=== PATIENT | female | born 2000 | race Caucasian/White ===

== ENCOUNTER → 2020-01-04 | Outpatient (CLI) | payer SELFPAY ==
--- NOTE | 2020-01-04 17:09 | RADIOLOGY REPORT (SQ) ---
EXAM DESCRIPTION: U/S OB 14+ TRNABD 1GES W/O DOP IMAGES COMPLETED DATE/TIME: 01/04/2020 3:58 pm REASON FOR STUDY: Z34.82 ENCOUNTER FOR SUPRVSN OF NORMAL , SECOND TRIMESTER Z34.82 ENCOUNT ER FOR SUPRVSN OF NORMAL , SECOND TRI COMPARISON: None. TECHNIQUE: Static and Dynamic grayscale imaging performed of gravid uterus using transabdominal appr oach. Additional selected color Doppler and spectral images recorded. All stored on PACS. LIMITATIONS: None. FINDINGS: FETUSES SEEN:1 EGA: 23 weeks 6 days Calculated using BPD,FL,HC,AC documented on images. No discrepancy with clinica l dates. SARAH: 04/26/2020 EFW: 569 grams PERCENTILE: 29th percentile RAPHAEL: Largest volume pocket 3.8 x 12 cm PLACENTA: Anterior grade 1 PRESENTATION: Cephalic. ANATOMY: HEART RATE: 141 beats per minute. FOUR CHAMBER HEART: Visualized. THREE VESSEL CORD: Yes. CORD INSERTION: Visualized. KIDNEYS AND BLADDER: Visualized. Appear normal. STOMACH: Visualized. Appears normal. SPINE: Normal as visualized. BRAIN AND LATERAL VENTRICLES: Visualized. Appear normal. OTHER: No other significant finding. MATERNAL ADNEXA: Maternal ovaries not visualized. CERVICAL LENGTH: 5 cm, Closed. OTHER: No other significant finding. IMPRESSION: LIVING INTRAUTERINE . ESTIMATED GESTATIONAL AGE 23 weeks 6 day NO VISUALIZED ANOMALIES. Trimester of : Second trimester - 13 weeks 1 day to 27 weeks 6 days. TECHNICAL DOCUMENTATION: JOB ID: [id number] 2010 [place]- All Rights Reserved Reading location - IP/workstation name: [id number]
== END ==
LOC: RAD 14:49
PROVIDERS: ATTEND Midwife
DX: Z34.82 Encounter for supervision of other normal pregnancy, second trimester (principal)
CPT/HCPCS: 76805

== ENCOUNTER 2020-01-10 05:08 | Inpatient (IN) | payer MEDICAID ==
--- NOTE | 2020-01-10 05:39 | ER Document Report ---
ED General - General Chief Complaint: Shortness Of Breath Stated Complaint: SHORTNESS OF BREATH Time Seen by Provider: 01/10/20 05:25 Primary Care Provider: HUMBERTO SARAH CNM [Primary Care Provider] - Follow up as needed Notes: Patient is a 20-year-old female, G3, P1 at 25 weeks gestation by first trimester ultrasound, that comes emergency department for chief complaint of shortness of breath, lightheadedness, and not feeling the baby moving. She states that she actually frequently feels short of breath especially in her later trimesters during , however she also felt somewhat lightheaded earlier. She states that she woke up operations liaison and she has not felt baby move for couple of hours and she became concerned. She states that after he became concerned she felt more short of breath. She denies chest pain, dizziness, cough, fever, congestion, sore throat, nausea or vomiting, abdominal pain, vaginal bleeding or discharge. The miscarriage she had previously was in first trimester. She take s Unisom for nausea, vitamins, no other medications or medical history reported. She denies personal or family history of blood clot, she does not smoke, she denies lower extremity swelling or recent travel. Past Medical History - General Information source: Patient - Social History Smoking Status: Never Smoker Frequency of alcohol use: None Drug Abuse: None Lives with: Family Family History: Reviewed & Not Pertinent - Immunizations Immunizations up to date: Yes Hx Diphtheria, Pertussis, Tetanus Vaccination: Yes Review of Systems - Review of Systems Constitutional: No symptoms reported EENT: No symptoms reported Cardiovascular: See HPI Respiratory: See HPI Gastrointestinal: No symptoms reported Genitourinary: No symptoms reported Female Genitourinary: See HPI Musculoskeletal: No symptoms reported Skin: No symptoms reported Hematologic/Lymphatic: No symptoms reported Neurological/Psychological: No symptoms reported Physical Exam - Vital signs Vitals: Temp 97.8 F 01/10/20 05:08 - Notes Notes: GENERAL: Alert, interacts well. No acute distress. HEAD: Normocephalic, atraumatic. EYES: Pupils equal, round, and reactive to light. Extraocular movements intact. ENT: Oral mucosa moist, tongue midline. Oropharynx unremarkable. Airway patent. NECK: Full range of motion. Supple. Trachea midline. No lymphadenopathy. LUNGS: Clear to auscultation bilaterally, no wheezes, rales, or rhonchi. No respiratory distress. Non-tender chest wall. HEART: Regular rate and rhythm. No murmur ABDOMEN: Gravid abdomen, nontender. GENITOURINARY: Deferred EXTREMITIES: Moves all 4 extremities spontaneously. No edema, normal radial and dorsalis pedis pulses bilaterally. No cyanosis. BACK: no cervical, thoracic, lumbar midline tenderness. No saddle anesthesia, normal distal neurovascular exam. Moves all extremities in full range of motion. NEUROLOGICAL: Alert and oriented x3. Normal speech. Cranial nerves II through XII grossly intact. Strength 5/5 in all extremities. PSYCH: Slightly anxious SKIN: Warm, dry, normal turgor. No rashes or lesions noted. Course - Re-evaluation Re-evalutation: EKG and chest x-ray unremarkable. Remaining work-up still pending. Vital signs unremarkable. Patient with clear lungs on auscultation, no signs of respiratory distress. No lower extremity swelling or concerning risk factors outside of for pulmonary embolism, no tachycardia or hypoxia, low suspicion of PE. She has no abdominal pain. Unfortunately patient also is not feeling any movement. We attempted Doppler heart tones but we were unable to obtain these. Patient was sent for formal ultrasound as a result. Ultrasound showing intrauterine at 24 weeks and 2 days which is less than expected, no heartbeat noted. I called and spoke with Dr. Khan, she recommends that I discussed with the patient and give her options including admission for induction, timed processes at home with returning later, or going to the office for a repeat ultrasound today. I discussed this at length with patient. Patient displayed grief but also was not surprised, she states this was what she expected. Patient was given time, afterwards she called me back to the room, states she spoke to her fianc and they both decided that they would proceed with going to labor and delivery for induction. I called Dr. Khan back, she accepts the patient. Informed nursing staff for coordination of this. - Vital Signs Vital signs: Temp Pulse Resp BP Pulse Ox 97.8 F 60 18 101/39 L 100 01/10/20 05:10 01/10/20 05:10 01/10/20 05:10 01/10/20 05:10 01/10/20 05:10 - Laboratory Result Diagrams: 01/10/20 06:34 01/10/20 06:34 Laboratory results interpreted by me: 01/10/20 06:22 Ur Leukocyte Esterase TRACE H Discharge - Discharge Clinical Impression: demise, Shortness of breath Condition: Stable Disposition: ADMITTED INPATIENT Admitting Provider: [facility] Unit Admitted: Labor and Delivery Additional Instructions: Please proceed to labor and delivery immediately. Referrals: HUMBERTO SARAH CNM [Primary Care Provider] - Follow up as needed
--- NOTE | 2020-01-10 06:36 | RADIOLOGY REPORT (SQ) ---
Obstetric ultrasound: 01/10/2020 5:33 AM CDT HISTORY: 20-year-old female with decreased her lack of motion. TECHNIQUE: Multiple grayscale and color Doppler images of the pelvis were obtained transabdominally. COMPARISON: None available for this . FINDINGS: A single intrauterine gestation is seen, which is cephalic in position. The placenta is anterior and fundal in location, and free of internal os of the cervix. No heart rate was found. The cervix measures at least 3.8 cm in length. The estimated weight is approximately 629 g +/- 15%. The fetus overall measures at the 29%. The RAPHAEL measures 7.6 cm, with the deepest vertical pocket of approximately 18.1 cm. The fetus measures at 24 weeks and 2 day(s) by AUA, consistent with an estimated due date of 04/29/2020. This is different than the prior estimated due date of 04/24/2020. No motion was detected by the entertainment centre manager. The following measurements were obtained: BPD: 6.3 cm, consistent with 25 weeks and 4 day(s). HC: 22.4 cm, consistent with 24 weeks and 3 day(s). AC: 19.3 cm, consistent with 24 weeks and 0 day(s). FL: 4.1 cm, consistent with 23 weeks and 1 day(s). IMPRESSION: There is a single intrauterine gestation currently cephalic in position with no heart rate down. This is concerning for a failed intrauterine . Interval follow-up with an obstetric care provider is recommended.
--- NOTE | 2020-01-10 06:42 | RADIOLOGY REPORT (SQ) ---
EXAM DESCRIPTION: X-ray single view chest. CLINICAL HISTORY: 20 years Female, short of breath; shield for COMPARISON: None. TECHNIQUE: Single portable x-ray view of the chest performed on 01/10/2020 at 5:58 AM FINDINGS: The lungs are well expanded and are clear. There is no evidence of a pneumothorax. The cardiac silhouette is normal in size and configuration. The mediastinal contours are normal. No acute osseous abnormality is identified. No focal soft tissue abnormalities are seen. Lines and tubes: None. IMPRESSION: No evidence of acute intrathoracic disease.
[2020-01-10 06:57] LABS: APPEARANCE,URINE CLEAR; BILIRUBIN,URINE NEGATIVE (NEGATIVE); COLOR,URINE STRAW; GLUCOSE, URINE NEGATIVE (NEGATIVE); KETONES,URINE NEGATIVE (NEGATIVE); LEUKOCYTE ESTERASE,URINE TRACE (NEGATIVE); NITRITE,URINE NEGATIVE (NEGATIVE); PROTEIN,URINE NEGATIVE (NEGATIVE); URINE SPECIFIC GRAVITY 1.004; UROBILINOGEN,URINE NEGATIVE mg/dL (<2.0)
[2020-01-10 07:16] LABS: ABSOLUTE EOSINOPHILS # (AUTO) 0.1 10^3/uL (0.0-0.6); ABSOLUTE LYMPHOCYTES (AUTO) 2.4 10^3/uL (0.5-4.7); ABSOLUTE MONOCYTES (AUTO) 0.6 10^3/uL (0.1-1.4); ABSOLUTE NEUT (AUTO) 5.3 10^3/uL (1.7-8.2); BASOPHILS % (AUTO) 0.2 % (0-2); EOSINOPHILS % (AUTO) 0.9 % (0-6); HEMATOCRIT 36.8 % (36.0-47.0); HEMOGLOBIN 13.4 g/dL (12.0-15.5); LYMPHOCYTES % (AUTO) 28.6 % (13-45); MEAN CORPUSCULAR HEMOGLOBIN 33.1 pg (27.0-33.4); MEAN CORPUSCULAR HGB CONC 36.4 g/dL (32.0-36.0); MEAN CORPUSCULAR VOLUME 91 fl (80-97); PLATELET COUNT 289 10^3/uL (150-450); RED BLOOD COUNT 4.04 10^6/uL (3.72-5.28); RED CELL DISTRIBUTION WIDTH 12.4 % (11.5-14.0); SEGMENTED NEUTROPHILS % (AUTO) 63.3 % (42-78); TOTAL CELLS COUNTED % (AUTO) 100 %; WHITE BLOOD COUNT 8.3 10^3/uL (4.0-10.5)
--- NOTE | 2020-01-10 07:21 | EKG REPORT ---
SEVERITY:- BORDERLINE ECG - SINUS RHYTHM BORDERLINE T ABNORMALITIES, DIFFUSE LEADS : Confirmed by: Urban Blum MD 10-Jan-2020 07:20:48
[2020-01-10 07:27] LABS: ANION GAP 5 (5-19); BLOOD UREA NITROGEN 6 mg/dL (7-20); CARBON DIOXIDE 25 mmol/L (22-30); CHLORIDE 103 mmol/L (98-107); GLUCOSE 77 mg/dL (75-110); POTASSIUM 4.2 mmol/L (3.6-5.0)
[2020-01-10] MEDS ORDERED: MISOPROSTOL 0.1 MG TABLET PO SCH (10:15)
[2020-01-10] MEDS ORDERED: MISOPROSTOL 0.2 MG TABLET ONE (11:41)
[2020-01-10 12:21] LABS: URINE AMPHETAMINES SCREEN NEGATIVE; URINE BARBITURATES SCREEN NEGATIVE; URINE BENZODIAZEPINES SCREEN NEGATIVE; URINE COCAINE SCREEN NEGATIVE; URINE MARIJUANA (THC) SCREEN NEGATIVE; URINE METHADONE SCREEN NEGATIVE; URINE PHENCYCLIDINE SCREEN NEGATIVE
[2020-01-10 12:22] LABS: A TYPE INFLUENZA AG NEGATIVE (NEGATIVE); B INFLUENZA AG NEGATIVE (NEGATIVE)
[2020-01-10] MEDS: RINGERS SOLUTION,LACTATED 1,000 ML IV PRN (12:49)
[2020-01-10] MEDS ORDERED: HYDROMORPHONE HCL INJ/PF 2 MG/ML AMPULE IV ONE (12:56)
[2020-01-10] MEDS ORDERED: HYDROMORPHONE HCL INJ/PF 2 MG/ML AMPULE ONE (12:59)
[2020-01-10 13:30] LABS: CHLAM PCR NOT DETECTED (NOT DETECT)
--- NOTE | 2020-01-10 17:01 | Admission Physical ---
Datetime Report Generated by CPN: 01/10/2020 17:01 CURRENT ADMISSION Hx Assessment: Limited Care Chief Complaint: Decreased Movement; Other Chief Complaint Other: pt presented to ER this AM with shortness of breath and decreased movement Indication for Induction: Demise Admit Impression : , Intrauterine ; Demise Admit Plan: Initiate Labor Induction Protocol ALLERGIES Medication Allergies: No Medication Allergies: No Known Allergies (01/10/2020) Latex: No Latex Allergies OBSTETRICAL HISTORY : 3 Term: 1 IAB: 1 Livin Cesareans: 1 Gestational Diabetes: No Rh Sensitization: No Incompetent Cervix: No TOMMY: No Infertility: No ART Treatment: No Uterine Anomaly: No IUGR: No Hx Previous C/S: Yes Macrosomia: No Hx Loss/Stillborn: No PIH: No Hx : No Placenta Previa/Abruption: No Depression/PP Depression: Yes PTL/PROM: No Post Hemorrhage: No Current Procedures: Ultrasound Obstetrical History Comments: 2016, full term male infant; c/s for distress G22017, IAB G3 - current, demise SEE RECORDS Alcohol: No Marijuana : No Cocaine: No Other Illicit Drugs: No Cigarettes: Former Smoker. [id number] MEDICAL HISTORY Diabetes: No Blood Transfusion: No Pulmonary Disease (Asthma, TB): No Breast Disease: No Hypertension: No Bi Data Modeler Surgery: No Heart Disease: No Hosp/Surgery: Yes Autoimmune Disorder: No Anesthetic Complications: No Kidney Disease: Yes Abnormal Pap Smear: Yes Neuro/Epilepsy: No Psychiatric Disorders: No Other Medical Diseases: No Hepatitis/Liver Disease: No Significant Family History: No Varicosities/Phlebitis: No Trauma/Violence : No Thyroid Dysfunction: No Medical History Comments: frequent UTIs since puberty, kidney infection at age 14; hx of depression, not currently on medications; c/s 2016; abnormal pap in June, advised f/u with colposcopy INFECTIOUS HISTORY Gonorrhea: No Genital Herpes: No Chlamydia: No Tuberculosis: No Syphilis: No Hepatitis: No HIV/AIDS Exposure: No Rash or Viral Illness: No HPV: No PHYSICAL EXAM General: Normal Heart: Normal Lungs: Normal Extremities: Normal Pelvic Type: Adequate Vital Signs: Reviewed; Within Normal Limits MEMBRANES Membranes: Intact FETUS A Estimated Weight (gm): 629 Presentation: Vertex Admit Comment: 20yo at 25wga per 6w dating sono on 08/30/19. Pt presented to ER today with shortness of breath and decreased movement. On U/S it was determined that the baby did not have heart tones and pt was given the option of going home and returning to hospital for IOL tomorrow, but patient wanted to stay and start induction of labor today. Pt reports care in [place] and just moved here about a month ago but upon receiving records only initial visit and u/s received as well as note from incision check from last delivery in 2017 (pt with transverse ). No labs collected as well as GBS and GC/Chlam. Covid testing also done and negative secondary to shortness of breath. Pt also reports an anatomy u/s done in our Hospital last week but no records found and after call was placed to [facility] they report patient had nurse visit but was not scheduled for her new OB until next week. Pt is B positive per care in [place] and hx of as stated above and an IAB after . Plan was to start cytotec which patient received an oral dose of 200mcg per Dr. Cook, will continue induction of labor at this time. Labs pending. Dr. Cook in unit and aware of plan INFORMED CONSENT Assignment: Elyse Cook MD Signature: with User ID: Rafael : with User ID: Rafael
[2020-01-10] MEDS ORDERED: ZOLPIDEM TARTRATE 5 MG TABLET PO ONE (19:40)
[2020-01-10] MEDS ORDERED: ACETAMINOPHEN 325 MG TABLET PO ONE (21:45)
[2020-01-10] MEDS ORDERED: ZOLPIDEM TARTRATE 5 MG TABLET ONE (21:47)
[2020-01-10] MEDS ORDERED: ACETAMINOPHEN 325 MG TABLET ONE (21:47)
[2020-01-10] MEDS: MISOPROSTOL 0.2 MG TABLET PO SCH (22:00)
[2020-01-11] MEDS ORDERED: MISOPROSTOL 0.2 MG TABLET ONE ×6 (03:56→21:21)
[2020-01-11 07:08] LABS: HEPATITS B SURFACE ANTIGEN Negative (Negative)
[2020-01-11] MEDS ORDERED: ONDANSETRON HCL INJ/PF 4 MG/2 ML SDV IV ONE (12:05)
[2020-01-11] MEDS ORDERED: ONDANSETRON HCL INJ/PF 4 MG/2 ML SDV ONE (12:08)
[2020-01-11] MEDS ORDERED: PROMETHAZINE HCL INJ 25 MG/1 ML VIAL IV ONE (14:58)
[2020-01-11] MEDS ORDERED: PROMETHAZINE HCL INJ 25 MG/1 ML VIAL ONE (14:59)
[2020-01-11] MEDS ORDERED: MISOPROSTOL 0.2 MG TABLET PV SCH (15:30)
[2020-01-11] MEDS ORDERED: HYDROMORPHONE HCL INJ/PF 2 MG/ML AMPULE IV ONE (19:11)
[2020-01-11] MEDS ORDERED: HYDROMORPHONE HCL INJ/PF 2 MG/ML AMPULE ONE (19:13)
[2020-01-11] MEDS ORDERED: MISOPROSTOL 0.2 MG TABLET PV ONE (21:18)
[2020-01-12] MEDS ORDERED: MISOPROSTOL 0.2 MG TABLET ONE ×2 (01:15→05:27)
[2020-01-12] MEDS ORDERED: MISOPROSTOL 0.2 MG TABLET PV ONE ×2 (01:30→05:25)
[2020-01-12] MEDS ORDERED: HYDROMORPHONE HCL INJ/PF 2 MG/ML AMPULE ONE (01:36)
[2020-01-12] MEDS: RINGERS SOLUTION,LACTATED 1,000 ML IV PRN (01:42)
[2020-01-12] MEDS ORDERED: HYDROMORPHONE HCL INJ/PF 2 MG/ML AMPULE IV ONE (02:00)
[2020-01-12] MEDS ORDERED: EPHEDRINE SULFATE INJ 50 MG/1 ML AMPULE ONE (02:13)
[2020-01-12] MEDS ORDERED: BUPIVACAINE HCL 0.25 % INJ/PF (2.5 MG/1 ML) 30 ML VIAL ONE (02:13)
[2020-01-12] MEDS ORDERED: FENTANYL/BUPIVACAINE/NS/PF 300 MCG/150 ML RTUINJ EPI ONE (02:13)
[2020-01-12] MEDS ORDERED: OXYTOCIN/NORMAL SALINE 20 UNIT/1,000 ML RTUINJ ONE (07:22)
[2020-01-12] MEDS ORDERED: DIPH/PERTUSS(ACELL)/TETANUS VAC/PF 0.5 ML SYR (>=10YO) IM PRN (07:30)
[2020-01-12] MEDS ORDERED: MEASLES,MUMPS&RUBELLA VACC/PF 0.5 ML VIAL SUBCUT PRN (07:30)
[2020-01-12] MEDS ORDERED: BENZOCAINE/MENTHOL AEROSOL SPRAY 56 ML TOP PRN (07:30)
[2020-01-12] MEDS ORDERED: DIBUCAINE 1% OINTMENT 28 GM TP PRN (07:30)
[2020-01-12] MEDS ORDERED: ACETAMINOPHEN WITH CODEINE #3 TABLET PO PRN ×2 (07:30)
--- NOTE | 2020-01-12 07:48 | Warning Signs in Babies ---
VOD Warning Signs Datetime Report Generated by [facility]: 01/12/2020 07:48 VOD#608 -Warning Signs in Babies: Needs to be viewed. (01/10/2020 10:22:Jazmyn Fung RN)
[2020-01-12] MEDS ORDERED: IBUPROFEN 800 MG TABLET ONE ×2 (09:11→15:14)
[2020-01-12] MEDS ORDERED: FERROUS SULFATE 325 MG TABLET PO ONE (09:11)
[2020-01-12] MEDS ORDERED: DOCUSATE SODIUM 100 MG CAPSULE ONE (09:11)
[2020-01-12] MEDS ORDERED: PRENATAL VITAMIN W DHA CAPSULE PO ONE (09:11)
[2020-01-12] MEDS ORDERED: SENNOSIDES/DOCUSATE 8.6-50 MG 1 EACH TABLET ONE (09:11)
[2020-01-12] MEDS ORDERED: PRENATAL VITAMIN W DHA CAPSULE PO SCH (10:00)
[2020-01-12] MEDS ORDERED: FERROUS SULFATE 325 MG TABLET PO SCH (10:00)
[2020-01-12] MEDS ORDERED: SENNOSIDES/DOCUSATE 8.6-50 MG 1 EACH TABLET PO SCH (10:00)
[2020-01-12] MEDS ORDERED: DOCUSATE SODIUM 100 MG CAPSULE PO SCH (10:00)
--- NOTE | 2020-01-12 10:33 | Delivery Summary ---
Del Sum A-C Datetime Report Generated by CPN: 01/12/2020 10:33 DELIVERY PERSONNEL DELIVERY PERSONNEL: [id number] Delivery Doctor:: Jessica Parsons MD Labor and Delivery Nurse:: Alyssa Acosta RN Switchboard Operator/VERIFICATION REP: Thalia Jack, CANAL EQUIPMENT MECHANIC MATERNAL INFORMATION Delivery Anesthesia: Epidural Medications After Delivery: Pitocin Bolus-Please Comment Meds After Delivery Comment: Pitocin 20 units/1000 ml NSS Estimated Blood Loss (ml): 100 Delivery QBL: 100 Maternal Complications: None Provider Comments: Apgars 0/0. placenta delivered immediately after. of note there was no blood present in the umbilical cord which was white and completely exsanguiated. The fetus appears to have a possible syndrome due to the low lying ears and facial edema/thickening of nuchal area. LABOR SUMMARY EDC: 04/24/2020 00:00 No. Babies in Womb: 1 Attempted: Yes Labor Anesthesia: Epidural LABOR INFORMATION Reason for Induction: Demise Cervical Ripening Agents: Cytotec @ Oxytocin: N/A MEMBRANES Membranes Rupture Method: Spontaneous Rupture of Membranes: 01/12/2020 06:44 Length of Rupture (hr): 0.00 Amniotic Fluid Color: Clear Amniotic Fluid Amount: Moderate STAGES OF LABOR Stage 3 hr: 0 Stage 3 min: 1 VAGINAL DELIVERY Episiotomy: None Laceration #1: None Laceration Extension #1: N/A Laceration Repair: Not Applicable CSECTION DELIVERY Primary Indication: N/A Secondary Indication: N/A CSection Incidence: N/A Labor: N/A Elective: N/A CSection Incision: N/A BABY A INFORMATION Delivery Date/Time: 01/12/2020 06:44 Method of Delivery: Vaginal Nurse Controlled Delivery: No Born in Route : No : Successful Forceps: N/A Vacuum Extraction: N/A Shoulder Dystocia : No PRESENTATION/POSITION BABY A Presentation: Cephalic Cephalic Presentation: Vertex Breech Presentation: N/A PLACENTA INFORMATION BABY A Placenta Delivery Time : 01/12/2020 06:45 Placenta Method of Delivery: Spontaneous Placenta Status: Delivered INFANT INFORMATION BABY A Gestational Age at Delivery: 25.2 Gestational Status: - <34 Weeks Infant Outcome : Stillborn Sex: Male WEIGHT/LENGTH BABY A Birthweight (gm): 664 Infant Weight (lb): 1 Infant Weight (oz): 7 Length (in): 12.50 Infant Length (cm): 31.75 CORD INFORMATION BABY A Nuchal Cord : N/A Cord Blood Taken: N/A Suction: None SIGNATURES Signature: with User ID: Andrea
[2020-01-12] MEDS ORDERED: IBUPROFEN 800 MG TABLET PO SCH (14:00)
[2020-01-12 15:07] LABS: HEMATOCRIT 31.1 % (36.0-47.0); HEMOGLOBIN 11.4 g/dL (12.0-15.5); MEAN CORPUSCULAR HEMOGLOBIN 32.9 pg (27.0-33.4); MEAN CORPUSCULAR HGB CONC 36.6 g/dL (32.0-36.0); MEAN CORPUSCULAR VOLUME 90 fl (80-97); PLATELET COUNT 242 10^3/uL (150-450); RED BLOOD COUNT 3.47 10^6/uL (3.72-5.28); RED CELL DISTRIBUTION WIDTH 12.1 % (11.5-14.0); WHITE BLOOD COUNT 15.3 10^3/uL (4.0-10.5)
[2020-01-12 15:56] VITALS: BP 99/54
--- NOTE | 2020-01-12 16:12 | PDOC DISCHARGE SUMMARY ---
Impression - Admit/DC Date/PCP Admission Date/Primary Care Provider: 01/10/20 07:24 HUMBERTO SARAH CNM Discharge Date: 01/12/20 - Assessment Summary: 20yo with IUFD G3 now P2L1 delivered this AM. Desires to be discharged at this time. Denies h/s ideation. Reports pain well controlled with motrin,VSS,no lacerations, understands warning s/s and when and how to seek immediate care. Will f/u at office on Friday/Friday per Dr. Khan. Pt asked questions and verbalized understanding. - Additional Information Resuscitation Status: Full Code - Information given to [facility] for f/u appt Discharge Diet: As Tolerated, Regular Discharge Activity: Activity As Tolerated, Balance Activity w/Rest, No Lifting Over 10 Pounds, Pelvic Rest, No tub bath, Walk Frequently Referrals: HUMBERTO SARAH CNM [Primary Care Provider] - Follow up as needed Prescriptions: Ibuprofen [Motrin 800 mg Tablet] 800 mg PO Q8HP PRN #20 tablet PRN Reason: Abdominal Cramping Home Medications: Doxylamine Succinate [Unisom] 1 tab PO QHS PRN 01/10/20 Vits96/Iron Fum/Folic [ Tablet] 1 tab PO DAILY 01/10/20 Ibuprofen [Motrin 800 mg Tablet] 800 mg PO Q8HP PRN #20 tablet 01/12/20 Results Laboratory Results: WBC 15.3 10^3/uL (4.0-10.5) H 01/12/20 14:54 RBC 3.47 10^6/uL (3.72-5.28) L 01/12/20 14:54 Hgb 11.4 g/dL (12.0-15.5) L 01/12/20 14:54 Hct 31.1 % (36.0-47.0) L 01/12/20 14:54 MCV 90 fl (80-97) 01/12/20 14:54 MCH 32.9 pg (27.0-33.4) 01/12/20 14:54 MCHC 36.6 g/dL (32.0-36.0) H 01/12/20 14:54 RDW 12.1 % (11.5-14.0) 01/12/20 14:54 Plt Count 242 10^3/uL (150-450) 01/12/20 14:54 Lymph % (Auto) 28.6 % (13-45) 01/10/20 06:34 [place] % (Auto) 7.0 % (3-13) 01/10/20 06:34 Eos % (Auto) 0.9 % (0-6) 01/10/20 06:34 Baso % (Auto) 0.2 % (0-2) 01/10/20 06:34 Absolute Neuts (auto) 5.3 10^3/uL (1.7-8.2) 01/10/20 06:34 Absolute Lymphs (auto) 2.4 10^3/uL (0.5-4.7) 01/10/20 06:34 Absolute Monos (auto) 0.6 10^3/uL (0.1-1.4) 01/10/20 06:34 Absolute Eos (auto) 0.1 10^3/uL (0.0-0.6) 01/10/20 06:34 Absolute Basos (auto) 0.0 10^3/uL (0.0-0.2) 01/10/20 06:34 Seg Neutrophils % 63.3 % (42-78) 01/10/20 06:34 Sodium 132.6 mmol/L (137-145) L 01/10/20 06:34 Potassium 4.2 mmol/L (3.6-5.0) 01/10/20 06:34 Chloride 103 mmol/L (98-107) 01/10/20 06:34 Carbon Dioxide 25 mmol/L (22-30) 01/10/20 06:34 Anion Gap 5 (5-19) 01/10/20 06:34 BUN 6 mg/dL (7-20) L 01/10/20 06:34 Creatinine 0.32 mg/dL (0.52-1.25) L 01/10/20 06:34 Est GFR ( Amer) > 60 (>60) 01/10/20 06:34 Est GFR (MDRD) Non-Af > 60 (>60) 01/10/20 06:34 Glucose 77 mg/dL (75-110) 01/10/20 06:34 Calcium 9.0 mg/dL (8.4-10.2) 01/10/20 06:34 TSH 2.80 uIU/mL (0.47-4.68) 01/10/20 06:34 Urine Color STRAW 01/10/20 06:22 Urine Appearance CLEAR 01/10/20 06:22 Urine pH 8.0 (5.0-9.0) 01/10/20 06:22 Ur Specific [place] 1.004 01/10/20 06:22 Urine Protein NEGATIVE mg/dL (NEGATIVE) 01/10/20 06:22 Urine Glucose (UA) NEGATIVE mg/dL (NEGATIVE) 01/10/20 06:22 Urine Ketones NEGATIVE mg/dL (NEGATIVE) 01/10/20 06:22 Urine Blood NEGATIVE (NEGATIVE) 01/10/20 06:22 Urine Nitrite NEGATIVE (NEGATIVE) 01/10/20 06:22 Urine Bilirubin NEGATIVE (NEGATIVE) 01/10/20 06:22 Urine Urobilinogen NEGATIVE mg/dL (<2.0) 01/10/20 06:22 Ur Leukocyte Esterase TRACE (NEGATIVE) H 01/10/20 06:22 Urine WBC (Auto) 0 /HPF 01/10/20 06:22 Urine RBC (Auto) 0 /HPF 01/10/20 06:22 Urine Bacteria (Auto) TRACE /HPF 01/10/20 06:22 Squamous Epi Cells Auto 2 /HPF 01/10/20 06:22 Urine Mucus (Auto) RARE /LPF 01/10/20 06:22 Urine Ascorbic Acid NEGATIVE (NEGATIVE) 01/10/20 06:22 Urine Opiates Screen NEGATIVE 01/10/20 06:22 Urine Methadone Screen NEGATIVE 01/10/20 06:22 Ur Barbiturates Screen NEGATIVE 01/10/20 06:22 Ur Phencyclidine Scrn NEGATIVE 01/10/20 06:22 Ur Amphetamines Screen NEGATIVE 01/10/20 06:22 U Benzodiazepines Scrn NEGATIVE 01/10/20 06:22 Urine Cocaine Screen NEGATIVE 01/10/20 06:22 U Marijuana (THC) Screen NEGATIVE 01/10/20 06:22 RPR NONREACTIVE (NONREACTIVE) 01/10/20 12:55 Chlamydia DNA (PCR) NOT DETECTED (NOT DETECT) 01/10/20 11:15 Hep Bs Antigen Negative (Negative) 01/10/20 12:55 HIV 1&2 Antibody NEGATIVE (NEGATIVE) 01/10/20 12:55 Influenza A (Rapid) NEGATIVE (NEGATIVE) 01/10/20 11:15 Influenza B (Rapid) NEGATIVE (NEGATIVE) 01/10/20 11:15 N.gonorrhoeae DNA (PCR) NOT DETECTED (NOT DETECT) 01/10/20 11:15 Rubella IgG Antibody 25.40 IU/mL 01/10/20 12:55 Rubella IgG Ab Interp POSITIVE 01/10/20 12:55 SARS-CoV-2 (PCR) NEGATIVE (NEGATIVE) 01/10/20 11:15 Group A Strep Rapid NEGATIVE (NEGATIVE) 01/10/20 11:15 Blood Type B POSITIVE 01/10/20 12:55 Antibody Screen NEGATIVE 01/10/20 12:55 Impressions: Obstetrics Ultrasound 01/10/20 05:34 IMPRESSION: There is a single intrauterine gestation currently cephalic in position with no heart rate down. This is concerning for a failed intrauterine . Interval follow-up with an obstetric care provider is recommended. Chest X-Ray 01/10/20 05:36 IMPRESSION: No evidence of acute intrathoracic disease.
[2020-01-12 23:36] LABS: HEPATITIS C QUANTITATION HCV Not Detected IU/mL (.)
== END 2020-01-12 16:24 | disposition home or self-care (01) | DRG 805 ==
LOC: ER 05:08 → EH 07:24 → LR 09:18
PROVIDERS: ADMIT Obstetrics & Gynecology; ATTEND Obstetrics & Gynecology
PROC: 10E0XZZ Delivery of Products of Conception, External Approach (ICD-10-PCS; principal; 2020-01-12)
PROC: 3E0P7VZ Introduction of Hormone into Female Reproductive, Via Natural or Artificial Opening (ICD-10-PCS; 2020-01-12)
DX: O36.4XX0 Maternal care for intrauterine death, not applicable or unspecified (principal); O60.12X0 Preterm labor second trimester with preterm delivery second trimester, not applicable or unspecified; Z37.1 Single stillbirth; O34.211 Maternal care for low transverse scar from previous cesarean delivery; O36.8120 Decreased fetal movements, second trimester, not applicable or unspecified; Z3A.25 25 weeks gestation of pregnancy; Z87.891 Personal history of nicotine dependence
CPT/HCPCS: 1967; 36415; 71045; 76805; 80048; 80307; 81001; 84443; 85025; 85027; 86592; 86701; 86762; 86850; 86900; 86901; 87070; 87340; 87491; 87522; 87591; 87635; 87804; 87880; 93005; 93010; 93976; 94760; 99285; J1170; J2405; J2550; J2590; J3010; J3490

== ENCOUNTER 2020-01-14 09:36 | Emergency (ER) | payer MEDICAID ==
[2020-01-14] MEDS ORDERED: IBUPROFEN 800 MG TABLET PO ONE (09:51)
--- NOTE | 2020-01-14 09:53 | ER Document Report ---
ED Medical Screen (RME) - General Chief Complaint: Breast Problem Stated Complaint: BREAST SWELLING Time Seen by Provider: 01/14/20 09:49 Primary Care Provider: HUMBERTO SARAH CNM [Primary Care Provider] - Follow up as needed Mode of Arrival: Ambulatory Information source: Patient - Related Data Allergies/Adverse Reactions: No Known Allergies Allergy (Unverified 01/10/20 09:23) Past Medical History Past Surgical History: Reports: Hx Section - Immunizations Immunizations up to date: Yes Hx Diphtheria, Pertussis, Tetanus Vaccination: Yes Physical Exam - Vital signs Vitals: Temp Pulse Resp BP Pulse Ox 97.7 F 94 14 117/61 100 01/14/20 09:41 01/14/20 09:41 01/14/20 09:41 01/14/20 09:41 01/14/20 09:41 Course - Vital Signs Vital signs: Temp Pulse Resp BP Pulse Ox 97.7 F 94 14 117/61 100 01/14/20 09:41 01/14/20 09:41 01/14/20 09:41 01/14/20 09:41 01/14/20 09:41 Doctor's Discharge - Discharge Referrals: HUMBERTO SARAH CNM [Primary Care Provider] - Follow up as needed
--- NOTE | 2020-01-14 10:01 | ER Document Report ---
HPI - HPI Patient complains to provider of: breast pain Time Seen by Provider: 01/14/20 09:49 Onset: Other Onset/Duration: Persistent Quality of pain: Achy, Throbbing Pain Level: 3 Context: This 20-year-old female presents 2 days from a stillbirth with a C- section for complaints of breast engorgement. Reports she is tried cabbage leaves showers she is tried expressing her milk without success. Reports her breasts are severely in pain engorged. Denies fever vomiting diarrhea. Has not taken anything for the pain today. Associated Symptoms: None Exacerbated by: Denies Relieved by: Denies Similar symptoms previously: Yes Recently seen / treated by doctor: Yes - REPRODUCTIVE Reproductive: REPORTS: : Past Medical History - General Information source: Patient Last Menstrual Period: post 2 days - Social History Smoking Status: Current Every Day Smoker Cigarette use (# per day): Yes Frequency of alcohol use: None Drug Abuse: None Family History: Reviewed & Not Pertinent Patient has homicidal ideation: No - Medical History Medical History: Negative Past Surgical History: Reports: Hx Section - Immunizations Immunizations up to date: Yes Hx Diphtheria, Pertussis, Tetanus Vaccination: Yes Vertical Provider Document - CONSTITUTIONAL Agree With Documented VS: Yes Exam Limitations: No Limitations General Appearance: WD/WN, No Apparent Distress - HEENT HEENT: Atraumatic, Normocephalic - NECK Neck: Supple - RESPIRATORY Respiratory: No Respiratory Distress, Other - bilateral breast ttp, firm, no erythema - CARDIOVASCULAR Cardiovascular: Regular Rate - MUSCULOSKELETAL/EXTREMETIES Musculoskeletal/Extremeties: MAEW, FROM - NEURO Level of Consciousness: Awake, Alert, Appropriate Motor/Sensory: No Motor Deficit - DERM Integumentary: Warm, Dry Course - Re-evaluation Re-evalutation: 01/14/20 10:49 20-year-old female presents 2 days from a stillbirth delivery with complaints of breast engorgement. Her breasts are firm but not erythemic or warm. I contacted Grace in L&D who contacted the nurse. Patient was given a breast pump and was also given information on ways to decrease engorgement. Patient was instructed on signs and symptoms of infection. Upon discharge Kaylee the nurse appeared. Patient verbalized understanding to all information. - Vital Signs Vital signs: Temp Pulse Resp BP Pulse Ox 97.7 F 94 14 117/61 100 05/08/20 09:49 01/14/20 09:41 01/14/20 09:41 01/14/20 09:41 01/14/20 09:41 Discharge - Discharge Clinical Impression: breast pain, Breast engorgement Condition: Stable Disposition: HOME, SELF-CARE Instructions: Ibuprofen (General) ([facility]) Additional Instructions: *You have been evaluated for breast pain, engorgement *Take your ibuprofen as prescribed *Monitor your breast for signs of infection such as redness or warmth to the breast *use a warm compress, or taking a warm shower to encourage milk let down, apply a cold compress or ice pack to relieve pain and swelling, wear a supportive bra that prevents your breasts from moving significantly *Follow up with your [facility] as scheduled *Return to the emergency department for worsening pain, redness to breast, fever, concerns Referrals: HUMBERTO SARAH CNM [NO LOCAL MD] - Follow up as needed
[2020-01-14 11:04] VITALS: BP 105/51
== END 2020-01-14 11:15 | disposition home or self-care (01) ==
LOC: ER 09:36
DX: O92.79 Other disorders of lactation (principal); O90.9 Complication of the puerperium, unspecified; O99.335 Smoking (tobacco) complicating the puerperium; F17.210 Nicotine dependence, cigarettes, uncomplicated
CPT/HCPCS: 99283; J3490

== ENCOUNTER 2020-04-18 11:41 | Emergency (ER) | payer MEDICAID ==
--- NOTE | 2020-04-18 11:56 | ER Document Report ---
ED Medical Screen (RME) - General Chief Complaint: Abdominal Pain Stated Complaint: ABDOMINAL PAIN Time Seen by Provider: 04/18/20 11:44 - HPI Notes: 04/18/20 11:52 20-year-old female G3, P1 who is is 3 weeks 4 days presents to the emergency room with left lower quadrant abdominal pain that radiates to the left flank. reports pain is worse at night and while eating. Has any vaginal bleeding vaginal pain, does have history of fever and chills. Has not tried any [id number] medications. Denies any chest pain shortness of breath. Reports that she has hyperemesis with her last 2 pregnancies, states she is nauseous today, no vomiting. Denies any fevers or chills. I have greeted and performed a rapid initial assessment of this patient. A comprehensive ED assessment and evaluation of the patient, analysis of test results and completion of the medical decision making process will be conducted by additional ED providers. PHYSICAL EXAMINATION: GENERAL: Well-appearing, well-nourished and in no acute distress. CV: s1, s2 regular LUNGS: No respiratory distress abd: LLQ abd pain, no cva tenderness appreciated bilaterally - Related Data Allergies/Adverse Reactions: No Known Allergies Allergy (Unverified 01/10/20 09:23) Past Medical History - Social History Frequency of alcohol use: None Drug Abuse: None Past Surgical History: Reports: Hx Section - Immunizations Immunizations up to date: Yes Hx Diphtheria, Pertussis, Tetanus Vaccination: Yes Physical Exam - Vital signs Vitals: Temp Pulse Resp BP Pulse Ox 99.3 F 82 16 99/52 L 98 04/18/20 11:45 04/18/20 11:45 04/18/20 11:45 04/18/20 11:45 04/18/20 11:45 Course - Vital Signs Vital signs: Temp Pulse Resp BP Pulse Ox 99.3 F 82 16 99/52 L 98 04/18/20 11:45 04/18/20 11:45 04/18/20 11:45 04/18/20 11:45 04/18/20 11:45
[2020-04-18 12:14] LABS: ABSOLUTE EOSINOPHILS # (AUTO) 0.1 10^3/uL (0.0-0.6); ABSOLUTE MONOCYTES (AUTO) 0.6 10^3/uL (0.1-1.4); ABSOLUTE NEUT (AUTO) 8.3 10^3/uL (1.7-8.2); BASOPHILS % (AUTO) 0.2 % (0-2); EOSINOPHILS % (AUTO) 0.8 % (0-6); HEMATOCRIT 38.3 % (36.0-47.0); HEMOGLOBIN 13.2 g/dL (12.0-15.5); LYMPHOCYTES % (AUTO) 17.9 % (13-45); MEAN CORPUSCULAR HEMOGLOBIN 31.2 pg (27.0-33.4); MEAN CORPUSCULAR HGB CONC 34.6 g/dL (32.0-36.0); MEAN CORPUSCULAR VOLUME 90 fl (80-97); MONOCYTES % (AUTO) 5.3 % (3-13); PLATELET COUNT 307 10^3/uL (150-450); RED BLOOD COUNT 4.25 10^6/uL (3.72-5.28); RED CELL DISTRIBUTION WIDTH 12.9 % (11.5-14.0); SEGMENTED NEUTROPHILS % (AUTO) 75.8 % (42-78); TOTAL CELLS COUNTED % (AUTO) 100 %
[2020-04-18 12:17] LABS: APPEARANCE,URINE SLIGHTLY-CLOUDY; BILIRUBIN,URINE NEGATIVE (NEGATIVE); COLOR,URINE YELLOW; GLUCOSE, URINE NEGATIVE (NEGATIVE); KETONES,URINE NEGATIVE (NEGATIVE); LEUKOCYTE ESTERASE,URINE NEGATIVE (NEGATIVE); NITRITE,URINE NEGATIVE (NEGATIVE); PROTEIN,URINE NEGATIVE (NEGATIVE); URINE SPECIFIC GRAVITY 1.025; UROBILINOGEN,URINE NEGATIVE mg/dL (<2.0)
[2020-04-18 12:33] LABS: ALKALINE PHOSPHATASE 60 U/L (38-126); ANION GAP 6 (5-19); ASPARTATE AMINO TRANSFERASE 17 U/L (14-36); BILIRUBIN,TOTAL 0.2 mg/dL (0.2-1.3); BLOOD UREA NITROGEN 7 mg/dL (7-20); CALCIUM 9.4 mg/dL (8.4-10.2); CARBON DIOXIDE 25 mmol/L (22-30); CHLORIDE 103 mmol/L (98-107); GLUCOSE 128 mg/dL (75-110); POTASSIUM 3.6 mmol/L (3.6-5.0); TOTAL PROTEIN 6.7 g/dL (6.3-8.2)
--- NOTE | 2020-04-18 13:34 | RADIOLOGY REPORT (SQ) ---
EXAM DESCRIPTION: U/S ABDOMEN LIMITED W/O DOP IMAGES COMPLETED DATE/TIME: 04/18/2020 1:21 pm REASON FOR STUDY: LUQ/LLQ abd pain, COMPARISON: None. TECHNIQUE: Dynamic and static grayscale images acquired of the abdomen and recorded on PACS. Lizao jigar selected color Doppler and spectral images recorded. LIMITATIONS: None. FINDINGS: Limited sonographic evaluation the left upper quadrant shows the spleen to be normal and m easured 9.5 cm. The left kidney measures 8.6 cm. No hydronephrosis. No stones. IMPRESSION: Unremarkable left upper quadrant ultrasound. TECHNICAL DOCUMENTATION: JOB ID: [id number] 2010 [employer]- All Rights Reserved Reading location - IP/workstation name: [email or web address]
--- NOTE | 2020-04-18 13:38 | RADIOLOGY REPORT (SQ) ---
EXAM DESCRIPTION: U/S [id number] TRNABD 1GES W/ODOP IMAGES COMPLETED DATE/TIME: 04/18/2020 1:21 pm REASON FOR STUDY: LLQ abd pain COMPARISON: 01/04/2020 TECHNIQUE: Transabdominal static and realtime grayscale images acquired of the pelvis. Additional se lected spectral and color Doppler images recorded. All images stored on PACs. bHCG: Not available. CLINICAL DATES: LMP 03/24/2020 3 weeks 4 days LIMITATIONS: None. FINDINGS: FETUS: Single Living intrauterine . ULTRASOUND EGA: 8 weeks 2 days ULTRASOUND SARAH: 11/26/2020 EFW: Not applicable less than 20 weeks. CRL: 1.8 cm FHR: 158 beats per minute. SURVEY: No visualized anomalies. AMNIOTIC FLUID: Adequate amount. PLACENTA: Not yet developed due to early gestation. SUBCHORIONIC BLEED: Yes SIZE OF BLEED: 11 x 8 x 16 mm UTERUS: No masses. No anomalies. CERVICAL LENGTH: 2.6 cm. Closed. RIGHT ADNEXA: Normal ovary with normal vascular flow. 2.7 x 1.8 x 2 cm. No adnexal free fluid. No adnexal masses. LEFT ADNEXA: Normal ovary with normal vascular flow. 2.2 x 1.7 x 1.3 cm. No adnexal free fluid. No adnexal masses. FREE FLUID: None. OTHER: No other significant finding. IMPRESSION: LIVING INTRAUTERINE . EGA 8 weeks 2 days Trimester of : First trimester - 0 to 13 weeks. TECHNICAL DOCUMENTATION: JOB ID: [id number] 2010 [employer]- All Rights Reserved Reading location - IP/workstation name: [email or web address]
--- NOTE | 2020-04-18 14:43 | ER Document Report ---
ED General - General Chief Complaint: Abdominal Pain Stated Complaint: ABDOMINAL PAIN Time Seen by Provider: 04/18/20 11:44 - HPI Notes: Chief complaint: Left pelvic pain radiating to left flank History of present illness:20-year-old female G3, P1 with 1 previous stillbirth who is at about 4 weeks by dates presenting to the emergency department with left lower quadrant abdominal/pelvic pain radiating to the left flank. She indicates pain is intermittent and is worse at night and while eating. Denies vaginal discharge, vaginal bleeding vaginal pain. No dysuria, fever and chills. Has taken Tylenol and gets intermittent relief of pain. She describes this maximally 3/10 in intensity.. Denies any chest pain shortness of breath. Reports that she has hyperemesis with her last 2 pregnancies, states she is naus eous today, no vomiting. Denies any fevers or chills. - Related Data Allergies/Adverse Reactions: No Known Allergies Allergy (Unverified 01/10/20 09:23) Past Medical History - General Information source: Patient, [facility] Records - Social History Smoking Status: Former Smoker Frequency of alcohol use: None Drug Abuse: None Family History: Reviewed & Not Pertinent Past Surgical History: Reports: Hx Section - Immunizations Immunizations up to date: Yes Hx Diphtheria, Pertussis, Tetanus Vaccination: Yes Review of Systems - Review of Systems Notes: Constitutional: Negative for fever. HENT: Negative for sore throat. Eyes: Negative for visual changes. Cardiovascular: Negative for chest pain. Respiratory: Negative for shortness of breath. Gastrointestinal: As per HPI. Genitourinary: As per HPI. Musculoskeletal: As per HPI. Skin: Negative for rash. Neurological: Negative for headaches, weakness or numbness. 10 point ROS negative except as marked above and in HPI. Physical Exam - Vital signs Vitals: Temp Pulse Resp BP Pulse Ox 99.3 F 82 16 99/52 L 98 04/18/20 11:45 04/18/20 11:45 04/18/20 11:45 04/18/20 11:45 04/18/20 11:45 - General Notes: GENERAL: Well-developed well-nourished female approximately stated age appearing in no acute distress. SKIN: Good turgor no rashes. HEAD: Normocephalic atraumatic. EYES: PERRLA. EOMI. Conjunctivae and sclerae clear. EARS: CANALS AND TMS CLEAR. NOSE: CLEAR. MOUTH: Moist mucosa. Good dentition. No stridor or edema. No drooling. NECK: Supple. No masses or thyromegaly. No adenopathy. Carotids 2+ without bruits. No JVD. BACK: Symmetrical without tenderness. CHEST: Respirations unlabored. Breath sounds clear and symmetrical. HEART: Regular rhythm. No murmur gallop or rub. ABDOMEN: Soft nontender without masses, organomegaly or rebound. Bowel sounds normally active. No bruits. GENITALIA: Deferred. EXTREMITIES: No edema. No calf tenderness. Cap refill less than 1.5 seconds. Dorsalis pedis and posterior tibial pulses 3+ and symmetrical. NEUROLOGICAL: GCS 15. Alert and oriented x3. Normal gait. Fluent speech. Cranial nerves II through XII intact. Sensorimotor and cerebellar normal. Normal tone. PSYCHIATRIC: Appropriate affect. Course - Re-evaluation Re-evalutation: 04/18/20 14:43 CBC and chemistry profile are normal. Urinalysis is unremarkable. 04/18/20 14:43 I have reassured patient that this is probably a ligamentous pain associated with a developing . Suggest continued use of Tylenol. She may use a heating pad. I also suggested topical Lidoderm. Follow-up with [facility] or return here as needed. Findings, clinical impression and plan of treatment have been discussed with patient/family. Understanding of current findings and recommendations has been acknowledged by them and there is agreement regarding disposition and follow-up. - Vital Signs Vital signs: Temp Pulse Resp BP Pulse Ox 99.3 F 82 16 99/52 L 98 04/18/20 11:45 04/18/20 11:45 04/18/20 11:45 04/18/20 11:45 04/18/20 11:45 - Laboratory Result Diagrams: 04/18/20 11:55 04/18/20 11:55 Laboratory results interpreted by me: 04/18/20 04/18/20 04/18/20 11:55 11:55 11:55 WBC 11.0 H Absolute Neuts (auto) 8.3 H Sodium 134.1 L Creatinine 0.46 L Glucose 128 H Beta HCG, Quant 894587.00 H Urine Ascorbic Acid 40 H - Diagnostic Test Radiology reviewed: Reports reviewed - Obstetrical ultrasound per radiologist: Normal IUP about 8 weeks EGA. Left renal ultrasound per radiologist: Normal. Discharge - Discharge Clinical Impression: Pain of round ligament during Condition: Stable Disposition: HOME, SELF-CARE Additional Instructions: Continue Tylenol. Heating pad as needed. Use topical medication provided to you. Follow-up with [facility] clinic. Return here as needed for new or worsening symptoms: Pain that is worsening or unimproved Uncontrolled vomiting High fever or shaking chills Overall worsening Prescriptions: Lidocaine [Lidoderm 5% (700 mg) Transdermal Patch] 1 patch TP DAILY #30 adh..patch
[2020-04-18 14:50] VITALS: BP 108/59
== END 2020-04-18 15:15 | disposition home or self-care (01) ==
LOC: ER 11:41
DX: O26.891 Other specified pregnancy related conditions, first trimester (principal); R10.2 Pelvic and perineal pain; Z3A.01 Less than 8 weeks gestation of pregnancy
CPT/HCPCS: 36415; 76705; 76801; 80053; 81001; 83690; 84702; 85025; 86900; 86901; 99284

== ENCOUNTER 2020-04-27 04:10 | Emergency (ER) | payer MEDICAID ==
[2020-04-27 04:41] VITALS: BP 96/33
[2020-04-27 06:10] LABS: ABSOLUTE BASOPHILS # (AUTO) 0.1 10^3/uL (0.0-0.2); ABSOLUTE EOSINOPHILS # (AUTO) 0.1 10^3/uL (0.0-0.6); ABSOLUTE LYMPHOCYTES (AUTO) 1.9 10^3/uL (0.5-4.7); ABSOLUTE MONOCYTES (AUTO) 0.6 10^3/uL (0.1-1.4); ABSOLUTE NEUT (AUTO) 9.9 10^3/uL (1.7-8.2); BASOPHILS % (AUTO) 0.4 % (0-2); EOSINOPHILS % (AUTO) 0.6 % (0-6); HEMATOCRIT 36.6 % (36.0-47.0); LYMPHOCYTES % (AUTO) 14.9 % (13-45); MEAN CORPUSCULAR HEMOGLOBIN 31.2 pg (27.0-33.4); MEAN CORPUSCULAR HGB CONC 35.5 g/dL (32.0-36.0); MEAN CORPUSCULAR VOLUME 88 fl (80-97); MONOCYTES % (AUTO) 4.7 % (3-13); PLATELET COUNT 307 10^3/uL (150-450); RED BLOOD COUNT 4.17 10^6/uL (3.72-5.28); RED CELL DISTRIBUTION WIDTH 12.7 % (11.5-14.0); SEGMENTED NEUTROPHILS % (AUTO) 79.4 % (42-78); TOTAL CELLS COUNTED % (AUTO) 100 %; WHITE BLOOD COUNT 12.5 10^3/uL (4.0-10.5)
[2020-04-27 06:22] LABS: APPEARANCE,URINE CLEAR; BILIRUBIN,URINE NEGATIVE (NEGATIVE); COLOR,URINE YELLOW; GLUCOSE, URINE NEGATIVE (NEGATIVE); KETONES,URINE 20 mg/dL (NEGATIVE); LEUKOCYTE ESTERASE,URINE TRACE (NEGATIVE); NITRITE,URINE NEGATIVE (NEGATIVE); PROTEIN,URINE NEGATIVE (NEGATIVE); URINE SPECIFIC GRAVITY 1.016; UROBILINOGEN,URINE NEGATIVE mg/dL (<2.0)
[2020-04-27 06:32] LABS: ALBUMIN 3.8 g/dL (3.5-5.0); ALKALINE PHOSPHATASE 73 U/L (38-126); ANION GAP 11 (5-19); ASPARTATE AMINO TRANSFERASE 18 U/L (14-36); BILIRUBIN,TOTAL 0.4 mg/dL (0.2-1.3); BLOOD UREA NITROGEN 6 mg/dL (7-20); CALCIUM 9.5 mg/dL (8.4-10.2); CARBON DIOXIDE 24 mmol/L (22-30); CHLORIDE 101 mmol/L (98-107); GLUCOSE 107 mg/dL (75-110); POTASSIUM 4.2 mmol/L (3.6-5.0); TOTAL PROTEIN 6.5 g/dL (6.3-8.2)
== END 2020-04-27 08:45 | disposition left against medical advice (07) ==
LOC: ER 04:10
DX: Z53.21 Procedure and treatment not carried out due to patient leaving prior to being seen by health care provider (principal)
CPT/HCPCS: 36415; 80053; 81001; 85025

== ENCOUNTER 2020-07-17 00:20 | Emergency (ER) | payer MEDICAID ==
--- NOTE | 2020-07-17 00:53 | ER Document Report ---
ED General Pain - General Chief Complaint: Back Pain Stated Complaint: LOWER BACK PAIN AND PRESSURE,ABDOMINAL PAIN Time Seen by Provider: 07/17/20 00:42 Primary Care Provider: [facility] [Provider Group] - 07/17/20 (call today for close outpatient follow up) - [facility] Notes: 20-year-old female G3, P1, stillborn at 25 weeks to the emergency department with complaints of left lower quadrant abdominal pain that started suddenly tonight. She states it wraps around her back and into her right flank. She denies any vaginal bleeding, urinary symptoms, increasing nausea and vomiting. She states she thinks she is about 18 weeks . She states her due date is November 28. She states that she is concerned about this abdominal pain because she had similar abdominal pain when she had her stillborn in January of this year. She states that this occurred at 25 weeks. She states that she is [facility] She states that she was told that she had partial placental previa for this . She denies any other complaints. - Related Data Allergies/Adverse Reactions: No Known Allergies Allergy (Verified 04/27/20 04:40) Past Medical History - General Information source: Patient - Social History Smoking Status: Never Smoker Frequency of alcohol use: None Drug Abuse: None Family History: Reviewed & Not Pertinent Past Surgical History: Reports: Hx Section - Immunizations Immunizations up to date: Yes Hx Diphtheria, Pertussis, Tetanus Vaccination: Yes Review of Systems - Review of Systems Constitutional: denies: Chills, Fever EENT: No symptoms reported Cardiovascular: denies: Chest pain, Palpitations, Heart racing, Orthopnea, Dyspnea, Syncope, Dizziness, Lightheaded Respiratory: denies: Cough, Short of breath Gastrointestinal: Abdominal pain. denies: Diarrhea, Nausea, Vomiting Genitourinary: denies: Frequency, Flank pain, Hematuria Female Genitourinary: . denies: Vaginal bleeding Musculoskeletal: No symptoms reported Skin: No symptoms reported Hematologic/Lymphatic: No symptoms reported Neurological/Psychological: No symptoms reported -: Yes All other systems reviewed and negative Physical Exam - Vital signs Vitals: Temp Pulse Resp BP Pulse Ox 97.9 F 92 18 119/54 L 96 07/17/20 00:25 07/17/20 00:25 07/17/20 00:25 07/17/20 00:25 07/17/20 00:25 Interpretation: Normal - General General appearance: Appears well, Alert In distress: None - HEENT Head: Normocephalic, Atraumatic Eyes: Normal Pupils: PERRL Neck: Normal, Supple - Respiratory Respiratory status: No respiratory distress Chest status: Nontender Breath sounds: Normal. No: Rales, Rhonchi, Stridor, Wheezing Chest palpation: Normal - Cardiovascular Rhythm: Regular Heart sounds: Normal auscultation Murmur: No Notes: No pedal edema - Abdominal Inspection: Gravid female - Gravid abdomen with fundus at the umbilicus. There is tenderness to palpation to the left lower quadrant. There is no tenderness to palpation to the right lower quadrant. Tenderness: Tender. No: McBurney's point, Castro's sign, Guarding, Rebound Organomegaly: No organomegaly - Back Back: Normal, Nontender. No: CVA tenderness - Neurological Neuro grossly intact: Yes Cognition: Normal Orientation: AAOx4 [place] Coma Scale Eye Opening: Spontaneous José Miguel Coma Scale Verbal: Oriented José Miguel Coma Scale Motor: Obeys Commands José Miguel Coma Scale Total: 15 Speech: Normal Cranial nerves: Normal Cerebellar coordination: Normal Motor strength normal: LUE, RUE, LLE, RLE Additional motor exam normals: Equal wound care center consultant Sensory: Normal - Psychological Associated symptoms: Normal affect, Normal mood - Skin Skin Temperature: Warm Skin Moisture: Dry Skin Color: Normal Course - Re-evaluation Re-evalutation: We will send patient to get a formal ultrasound since she states that she has been told that she has placenta previa. Bedside heart tones are r eassuring in the 160s. It is noted that she does have a urinary tract infection. We will go ahead and give her Rocephin. Noted ultrasound reading with dating that is different than the patient sugg ests. She told ER staff that she is about 18 weeks but she is measuring at 20 weeks. Rechecking her due date would make her technically almost 21 weeks . Did call labor and delivery about sending her up since she had some abdominal pain. I told him about the ultrasound and the urinary tract infection with the Rocephin given to her. Initially they stated that the patient could be set up and they rechecked her. However they called back not much longer and stated that they had talked with Dr. Gay, OB on-call, and he stated the patient did not need to come to labor and delivery. This was relayed to me through the charge nurse Ana in labor and delivery. Patient has not had any bleeding. She will go home on antibiotics. I did discuss this with my ER attending, Dr. Werner and he agrees with the plan. I have encouraged the patient to return at any time should her symptoms worsen. I would also like for her to follow-up with her [facility] today. She agrees with the plan - Vital Signs Vital signs: Temp Pulse Resp BP Pulse Ox 98.2 F 77 18 110/48 L 100 07/17/20 03:36 07/17/20 03:36 07/17/20 03:36 07/17/20 03:36 07/17/20 03:36 - Laboratory Result Diagrams: 07/17/20 00:50 07/17/20 00:50 Laboratory results interpreted by me: 07/17/20 07/17/20 07/17/20 00:50 00:50 00:50 WBC 13.3 H RBC 3.61 L Hgb 11.8 L Hct 33.1 L Absolute Neuts (auto) 9.8 H Sodium 133.7 L BUN 3 L Creatinine 0.28 L Leukocyte Esterase Rfl LARGE H Urine Ascorbic Acid 20 H - Diagnostic Test Radiology reviewed: Image reviewed, Reports reviewed Discharge - Discharge Clinical Impression: Abdominal pain affecting , 20 weeks gestation of UTI (urinary tract infection) Qualifiers: Urinary tract infection type: acute cystitis Hematuria presence: without hematuria Qualified Code(s): N30.00 - Acute cystitis without hematuria Condition: Stable Disposition: LABOR CHECK Instructions: Urinary Tract Infection ([facility]) Additional Instructions: Complete all antibiotics. Follow up with your OBGYN tomorrow. Return if worsening symptoms. Tylenol for pain. Prescriptions: Cephalexin Monohydrate [Keflex 500 mg Capsule] 500 mg PO BID 7 Days #14 capsule Referrals: [facility] [Provider Group] - 07/17/20 (call today for close outpatient follow up)
[2020-07-17] MEDS ORDERED: DIPHENHYDRAMINE HCL 50 MG/ML VIAL IV ONE (01:20)
[2020-07-17] MEDS ORDERED: NORMAL SALINE 1000 ML 1,000 ML IV ONE (01:20)
[2020-07-17] MEDS ORDERED: METOCLOPRAMIDE HCL INJ/PF 10 MG/2 ML SDV IV ONE (01:20)
[2020-07-17 01:28] LABS: ABSOLUTE BASOPHILS # (AUTO) 0.1 10^3/uL (0.0-0.2); ABSOLUTE EOSINOPHILS # (AUTO) 0.1 10^3/uL (0.0-0.6); ABSOLUTE LYMPHOCYTES (AUTO) 2.6 10^3/uL (0.5-4.7); ABSOLUTE MONOCYTES (AUTO) 0.8 10^3/uL (0.1-1.4); ABSOLUTE NEUT (AUTO) 9.8 10^3/uL (1.7-8.2); EOSINOPHILS % (AUTO) 0.5 % (0-6); HEMATOCRIT 33.1 % (36.0-47.0); HEMOGLOBIN 11.8 g/dL (12.0-15.5); LYMPHOCYTES % (AUTO) 19.3 % (13-45); MEAN CORPUSCULAR HEMOGLOBIN 32.6 pg (27.0-33.4); MEAN CORPUSCULAR HGB CONC 35.5 g/dL (32.0-36.0); MEAN CORPUSCULAR VOLUME 92 fl (80-97); MONOCYTES % (AUTO) 5.7 % (3-13); PLATELET COUNT 287 10^3/uL (150-450); RED BLOOD COUNT 3.61 10^6/uL (3.72-5.28); RED CELL DISTRIBUTION WIDTH 13.3 % (11.5-14.0); SEGMENTED NEUTROPHILS % (AUTO) 73.5 % (42-78); TOTAL CELLS COUNTED % (AUTO) 100 %; WHITE BLOOD COUNT 13.3 10^3/uL (4.0-10.5)
[2020-07-17 01:37] LABS: APPEARANCE,URINE SLIGHTLY-CLOUDY; BILIRUBIN,URINE NEGATIVE (NEGATIVE); COLOR,URINE YELLOW; GLUCOSE, URINE NEGATIVE (NEGATIVE); KETONES,URINE NEGATIVE (NEGATIVE); PROTEIN,URINE NEGATIVE (NEGATIVE); URINE SPECIFIC GRAVITY 1.009; UROBILINOGEN,URINE NEGATIVE mg/dL (<2.0)
[2020-07-17 01:54] LABS: ALBUMIN 3.6 g/dL (3.5-5.0); ALKALINE PHOSPHATASE 85 U/L (38-126); ANION GAP 8 (5-19); ASPARTATE AMINO TRANSFERASE 20 U/L (14-36); BILIRUBIN,DIRECT 0.1 mg/dL (0.0-0.4); BILIRUBIN,TOTAL 0.4 mg/dL (0.2-1.3); BLOOD UREA NITROGEN 3 mg/dL (7-20); CALCIUM 9.1 mg/dL (8.4-10.2); CARBON DIOXIDE 23 mmol/L (22-30); CHLORIDE 103 mmol/L (98-107); GLUCOSE 80 mg/dL (75-110); POTASSIUM 4.1 mmol/L (3.6-5.0); TOTAL PROTEIN 6.4 g/dL (6.3-8.2)
[2020-07-17] MEDS ORDERED: CEFTRIAXONE 1 GM/D5W RTU 1 GM/50 ML RTUPB IV ONE (02:02)
--- NOTE | 2020-07-17 02:52 | RADIOLOGY REPORT (SQ) ---
Ultrasound OB follow-up greater than 14 weeks on 07/17/2020 1:47 AM CLINICAL INDICATION: Pelvic pain, known placenta previa, COMPARISON: 04/18/2020 FINDINGS: Multiple sonographic images are obtained throughout the pelvis by transabdominal approach, both transverse and sagittal images are obtained. Single living intrauterine fetus is noted in cephalic presentation. Positive cardiac activity is noted with a heart rate of 130 bpm. Placenta is posterior in location with no evidence of placenta previa or abruption on this exam. Cervical length measures approximately 2.2 cm and the cervix is closed. Normal amount of amniotic fluid is noted with amniotic fluid index of 13 cm. No gross abnormality is noted. Estimated gestational age by measurements is an approximate 20 week four day gestation. Estimated weight is 399 g +/- 50 gram. Maternal adnexa were not imaged. IMPRESSION: Single living approximate 20 week four day intrauterine with no acute abnormality noted.
[2020-07-17 03:37] VITALS: BP 110/48
== END 2020-07-17 03:37 | disposition admitted as inpatient to this hospital (09) ==
LOC: ER 00:20
DX: O23.12 Infections of bladder in pregnancy, second trimester (principal); O26.892 Other specified pregnancy related conditions, second trimester; R10.32 Left lower quadrant pain; R10.814 Left lower quadrant abdominal tenderness; Z3A.20 20 weeks gestation of pregnancy
CPT/HCPCS: 99285; 96361; 96375; 96365; 36415; 87086; 85025; 80053; 81001; 76805; 93976; J1200; J2765; J7030; J0696